=== PATIENT | male | born 1970 | race Hispanic/Latino ===

== ENCOUNTER 2021-06-02 12:58 | Emergency (ER) | payer OTHER ==
[~2021-06-02] VITALS: Ht 170.2 cm; Wt 92.1 kg
[~2021-06-02 12:58] MED LIST: CLINDAMYCIN HC300 MG; DAILY MULTIPLE1 EACH; METOPROLOL TART25 MG; NORCO 5-325 TA1 EACH; PANTOPRAZOLE SO40 MG PO; [UNRECOGNIZED DRUG - OTHER]
[2021-06-02] MEDS ORDERED: ACETAMINOPHEN 325 MG TAB PO ONE (15:30)
[2021-06-02] MEDS ORDERED: SODIUM CHLORIDE 0.9% 1000ML 1,000 ML IV SCH (15:30)
[2021-06-02] MEDS ORDERED: BAMLANIVIMAB / ETESEVIMAB 2,100 MG in SODIUM CHLORIDE 0.9% 250ML 250 ML IV ONE (16:00)
== END 2021-06-02 18:37 | disposition home or self-care (01) ==
LOC: ER 13:06
DX: U07.1 COVID-19 (principal); R50.9 Fever, unspecified; R05 Cough; I10 Essential (primary) hypertension
CPT/HCPCS: 99283; J7030; J7050; U0002